=== PATIENT | male | born 1960 | race Caucasian/White ===

== ENCOUNTER 2019-12-02 19:03 | Emergency (ER) | payer MEDICAID ==
[~2019-12-02] VITALS: Ht 167.6 cm; Wt 116.1 kg
[2019-12-02 19:10] VITALS: BP_SYST 142
== END 2019-12-02 19:18 ==
LOC: SED 19:03
DX: R45.6 Violent behavior (principal); I10 Essential (primary) hypertension; Z86.73 Personal history of transient ischemic attack (TIA), and cerebral infarction without residual deficits
CPT/HCPCS: 99283